=== PATIENT | female | born 1980 | race Caucasian/White ===

== ENCOUNTER 2019-05-16 20:31 | Emergency (ER) | payer MEDICAID ==
[~2019-05-16] VITALS: Ht 157.5 cm; Wt 58.1 kg
[2019-05-16 20:38] VITALS: BP 124/71
--- NOTE | 2019-05-16 20:38 | NUR ---
38 Y/O FEMALE PRESENTS TO ED WITH C/O SORE THROAT AND NAUSEA X3 DAYS. 6/10 PAIN. REDNESS AND EDEMA NOTED IN THROAT. AFEBRILE WITH VSS. ER MD AWARE. CONTINUE TO MONITOR.
--- NOTE | 2019-05-16 20:38 | NUR ---
TO BED # 06 AMBULATORY
[2019-05-16 21:20] VITALS: BP 124/71
--- NOTE | 2019-05-16 21:20 | NUR ---
PT DISCHARGED BY DR RENTERIA. RX OF AUGMENTIN GIVEN. SIDE EFFECTS EXPLAINED. INSTRUCTED TO F/U WITH WITH PCP AND WHEN TO RETURN TO ER. PT VERBALLIZED UNDERSTANDIN [facility] INSTRUCTIONS. ALL QUESTOINS ANSWERED.
== END 2019-05-16 21:20 | disposition home or self-care (01) ==
LOC: MED 20:31
DX: J02.9 Acute pharyngitis, unspecified (principal)
CPT/HCPCS: 99283

== ENCOUNTER 2023-01-30 17:05 | Emergency (ER) | payer MEDICAID ==
[~2023-01-30] VITALS: Ht 157.5 cm; Wt 63.0 kg
[2023-01-30 17:55] VITALS: BP 102/74
[2023-01-30] MEDS ORDERED: BACI-416 TP (19:33)
[2023-01-30] MEDS ORDERED: IBUP-2213 PO (19:33)
[2023-01-30] MEDS ORDERED: CEPH-588 PO (19:33)
[2023-01-30 19:40] VITALS: BP 102/74
--- NOTE | 2023-01-30 19:40 | NUR ---
Patient discharged with v/s stable. Written and verbal after care instructions given and explained. Patient alert, oriented and verbalized understanding of instructions. Ambulatory with steady gait. All questions addressed prior to discharge. ID band removed. Patient advised to follow up with PMD. Rx of KEFLEX, BACITRACIN, IBUPROFEN given. Patient educated on indication of medication including possible reaction and side effects. Opportunity to ask questions provided and answered.
== END 2023-01-30 19:40 | disposition home or self-care (01) ==
LOC: MED 17:05
DX: S61.232A Puncture wound without foreign body of right middle finger without damage to nail, initial encounter (principal); Z79.1 Long term (current) use of non-steroidal anti-inflammatories (NSAID); Z79.2 Long term (current) use of antibiotics; W45.0XXA Nail entering through skin, initial encounter; Y92.009 Unspecified place in unspecified non-institutional (private) residence as the place of occurrence of the external cause; Y93.89 Activity, other specified; Y99.8 Other external cause status
CPT/HCPCS: 73140; 99283